=== PATIENT | male | born 1995 | race Caucasian/White ===

== ENCOUNTER 2025-01-31 04:52 | Emergency (ER) | payer OTHER, SELFPAY ==
[2025-01-31] VITALS (17 sets, daily range): BP systolic 132–147; BP diastolic 86–98; PULSE 78–109; TEMP 36.5–36.9; O2SAT 94–99; BMI 35.3
--- NOTE | 2025-01-31 05:14 | ECG_ITS ---
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 Measurements Intervals [place] Rate: 84 P: 26 ME: 124 QRS: 42 QRSD: 88 T: 46 QT: 354 QTc: 395 Interpretive Statements 1100 Sinus rhythm 9110 normal ECG No previous ECG available for comparison Electronically Signed On 01-31-2025 6:42:25 EST by SHAISTA SAHU M.D.
[2025-01-31 05:23] LABS: Basophils Percent Auto 0.2 % (0.2-2.0); Eosinophils Absolute Auto 0.1 10^3/uL (0.0-0.7); Eosinophils Percent Auto 1.2 % (0.9-7.0); Hematocrit 40.6 % (42.0-54.0); Hemoglobin 14.3 g/dL (14.0-18.0); Immature Granulocytes Abs Auto 0.02 10^3/uL (0.00-0.03); Immature Granulocytes Pct Auto 0.2 % (0.0-0.5); Lymphocytes Absolute Auto 3.5 10^3/uL (1.2-3.8); Lymphocytes Percent Auto 40.4 % (20.5-60.0); Mean Corpuscular HGB Conc 35.2 g/dL (29.9-35.2); Mean Corpuscular Hemoglobin 30.2 pg (25.9-34.0); Mean Corpuscular Volume 85.7 fL (80.0-94.0); Monocytes Absolute Auto 0.6 10^3/uL (0.3-0.8); Monocytes Percent Auto 6.6 % (1.7-12.0); Neutrophils Absolute Auto 4.4 10^3/uL (1.4-6.5); Neutrophils Percent Auto 51.4 % (43.0-75.0); Platelet Count 217 10^3/uL (150-450); Red Blood Count 4.74 10^6/uL (4.70-6.10); Red Cell Distribution Width 12.5 % (11.0-15.0); White Blood Count 8.5 10^3/uL (4.0-11.0)
[2025-01-31 05:56] LABS: Alanine Aminotransferase 61 U/L (16-63); Albumin Globulin Ratio 1.1; Albumin Level 3.9 g/dL (3.4-5.0); Alkaline Phosphatase 66 U/L (46-116); Anion Gap 15.5; Aspartate Amino Transferase 28 U/L (15-37); BUN Creatinine Ratio 15.4; Bilirubin Total 0.3 mg/dL (0.2-1.0); Calcium 9.2 mg/dL (8.5-10.1); Carbon Dioxide 23.4 mmol/L (21.0-32.0); Chloride 103 mmol/L (98-107); Estimated GFR (African America >60 (>=60 mL/min/1.73m^2); Estimated GFR (Non-African Ame >60 (>=60 mL/min/1.73m^2); Globulin 3.7 g/dL; Potassium 3.9 mmol/L (3.5-5.1); Sodium 138 mmol/L (136-145); Total Protein 7.6 g/dL (6.4-8.2); Troponin I High Sensitivity <4.0 pg/mL (4.0-76.1)
[2025-01-31 06:00] LABS: Glucose 211 mg/dL (74-106)
--- NOTE | 2025-01-31 06:21 | ED.SYNCOPE1 ---
HPI - Syncope General Chief Complaint: Syncope Stated Complaint: SYNCOPE Time Seen by Provider: 01/31/25 05:07 Source: patient Mode of arrival: ambulance Limitations: no limitations Related Data Home Medications ?Medication ?Instructions ?Recorded ?Confirmed buspirone 5 mg tablet 5 mg PO BID 01/31/25 01/31/25 escitalopram oxalate 20 mg tablet mg 01/31/25 insulin degludec 100 unit/mL (3 unit subcut 01/31/25 mL) subcutaneous pen (Tresiba FlexTouch U-100 insulin) insulin glargine U-300 conc 300 unit subcut 01/31/25 unit/mL (1.5 mL) subcutaneous pen (Toujeo SoloStar U-300 Insulin) insulin lispro 100 unit/mL subcut 01/31/25 subcutaneous pen Previous Rx's ?Medication ?Instructions ?Recorded hydroxyzine pamoate 25 mg capsule 25 mg PO ONCE PRN nausea and 01/31/25 vomiting #14 caps Allergies Allergy/AdvReac Type Severity Reaction Status Date / Time No Known Drug Allergies Allergy Verified 01/31/25 05:05 [facility] Medical History (Updated 01/31/25 @ 06:41 by Rose Lara DO) Anxiety ?F41.9 - Anxiety disorder, unspecified (ICD-10) Diabetes ?E11.9 - Type 2 diabetes mellitus without complications (ICD-10) Social History Little interest or pleasure in doing things: not at all Feeling down, depressed, or hopeless: not at all Exam Constitutional Vital Signs, click to edit/add: Last Vital Signs Temp 98.4 F 01/31/25 05:07 Pulse 87 01/31/25 06:20 Resp 21 H 01/31/25 06:20 BP 143/98 H 01/31/25 06:00 Pulse Ox 97 01/31/25 06:20 O2 Del Method Room Air 01/31/25 05:07 Course Vital Signs Vital signs: Vital Signs Pulse Rate 78 01/31/25 04:55 Respiratory Rate 16 01/31/25 04:55 Pulse Oximetry 96 01/31/25 04:55 Temperature 98.4 F 01/31/25 05:07 Pulse Rate 87 01/31/25 06:20 Respiratory Rate 21 H 01/31/25 06:20 Blood Pressure 143/98 H 01/31/25 06:00 Pulse Oximetry 97 03/06/25 06:20 Oxygen Delivery Method Room Air 01/31/25 05:07 MDM - Syncope Lab Data Labs: Lab Results 01/31/25 Range/Units 05:00 WBC 8.5 (4.0-11.0) 10^3/uL RBC 4.74 (4.70-6.10) 10^6/uL Hgb 14.3 (14.0-18.0) g/dL Hct 40.6 L (42.0-54.0) % MCV 85.7 (80.0-94.0) fL MCH 30.2 (25.9-34.0) pg MCHC 35.2 (29.9-35.2) g/dL RDW 12.5 (11.0-15.0) % Plt Count 217 (150-450) 10^3/uL MPV 12.0 (9.5-13.5) fL Neut % (Auto) 51.4 (43.0-75.0) % Lymph % (Auto) 40.4 (20.5-60.0) % [place] % (Auto) 6.6 (1.7-12.0) % Eos % (Auto) 1.2 (0.9-7.0) % Baso % (Auto) 0.2 (0.2-2.0) % Neut # (Auto) 4.4 (1.4-6.5) 10^3/uL Lymph # (Auto) 3.5 (1.2-3.8) 10^3/uL [place] # (Auto) 0.6 (0.3-0.8) 10^3/uL Eos # (Auto) 0.1 (0.0-0.7) 10^3/uL Baso # (Auto) 0.0 (0.0-0.1) 10^3/uL Abs Immat Gran (auto) 0.02 (0.00-0.03) 10^3/uL Imm/Tot Granulo (auto) 0.2 (0.0-0.5) % Sodium 138 (136-145) mmol/L Potassium 3.9 (3.5-5.1) mmol/L Chloride 103 (98-107) mmol/L Carbon Dioxide 23.4 (21.0-32.0) mmol/L Anion Gap 15.5 BUN 18.0 (7.0-18.0) mg/dL Creatinine 1.17 (0.70-1.30) mg/dL Est GFR ( Amer) >60 (>=60 mL/min/1.73m^2) Est GFR (Non-Af Amer) >60 (>=60 mL/min/1.73m^2) BUN/Creatinine Ratio 15.4 Glucose 211 H (74-106) mg/dL Calcium 9.2 (8.5-10.1) mg/dL Total Bilirubin 0.3 (0.2-1.0) mg/dL AST 28 (15-37) U/L ALT 61 (16-63) U/L Alkaline Phosphatase 66 (46-116) U/L Troponin I High Sens <4.0 L (4.0-76.1) pg/mL Total Protein 7.6 (6.4-8.2) g/dL Albumin 3.9 (3.4-5.0) g/dL Globulin 3.7 g/dL Albumin/Globulin Ratio 1.1 Discharge Plan Discharge Chief Complaint: Syncope Clinical Impression: Syncope Patient Disposition: Home, Self-Care Prescriptions / Home Meds: New hydroxyzine pamoate 25 mg capsule 25 mg PO ONCE MDD limit to 2 pills per day PRN (Reason: nausea and vomiting) Qty: 14 0RF No Action escitalopram oxalate 20 mg tablet buspirone 5 mg tablet 5 mg PO BID insulin lispro 100 unit/mL insulin pen SUBCUT insulin degludec [Tresiba FlexTouch U-100] 100 unit/mL (3 mL) insulin pen SUBCUT insulin glargine U-300 conc [Toujeo SoloStar U-300 Insulin] 300 unit/mL (1.5 mL) insulin pen SUBCUT Print Language: Upper Sorbian Instructions: Syncope (ED) Additional Instructions: Thank you for trusting me with your care today. Please continue to take all your medications as directed. Referrals: LIZZIE LEON [Primary Care Provider] - 1 week
--- NOTE | 2025-01-31 06:46 | ED.GENADUL1 ---
HPI HPI - General Adult General Chief complaint: Syncope Stated complaint: SYNCOPE Time Seen by Provider: 01/31/25 05:07 Source: patient Mode of arrival: ambulance Limitations: no limitations History of Present Illness HPI narrative: The patient is a 29-year-old with a history of anxiety and diabetes. He is presents to the emergency department today because he had a syncopal event at work. Symptoms started a couple hours ago. 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 The patient stated that he was at his workstation and started to feel his heart race and was having a little bit of difficulty breathing. Try to take some deep breaths and do some managing techniques but he did not feel very well. He works at [employer] on the [employer] line. He was in the seated job and then apparently was going to move to do his standing job and when he stood up he felt worse. He told a coworker and then sat down. Then he had a syncopal event on the platform. He did not fall or injure himself. The patient quickly came to. There was no seizure-like activity or any injury from the fall. Patient was brought here from his job. When I see the patient he is back to normal. His is at bedside. The patient admits to me that he does have a longstanding history of anxiety. He believes that he had an anxiety attack and in the past, with severe attacks, he would have a syncopal event. He has recently been on buspirone and escitalopram. He has been taking both medications as directed. He does not have a rescue medication in the interim. The patient stated that he has only had 3 of these events since being switched to these medications. These events used to occur much more frequently prior to being on these medications. The patient is denying any suicidal homicidal thoughts. He is not having any trouble thinking or concentrating. He feels safe in his own home. Nobody is verbally, sexually, or physically harming him. He states it is nothing that occurred at work but really more personal reasons. The patient states is not uncommon for him when he gets to having an anxiety attack and hyperventilating that this incident would occur. Patient states if this were happening while he was driving or operating some type of vehicle that he would typically pull his car over. The patient was at work today and not engaged in any hurtful or harmful activities where the patient may injure himself or coworker. Symptoms have completely solved upon assessment of the patient. Related Data Home Medications ?Medication ?Instructions ?Recorded ?Confirmed buspirone 5 mg tablet 5 mg PO BID 01/31/25 01/31/25 escitalopram oxalate 20 mg tablet mg 01/31/25 insulin degludec 100 unit/mL (3 unit subcut 01/31/25 mL) subcutaneous pen (Tresiba FlexTouch U-100 insulin) insulin glargine U-300 conc 300 unit subcut 01/31/25 unit/mL (1.5 mL) subcutaneous pen (Toujeo SoloStar U-300 Insulin) insulin lispro 100 unit/mL subcut 01/31/25 subcutaneous pen Previous Rx's ?Medication ?Instructions ?Recorded hydroxyzine pamoate 25 mg capsule 25 mg PO ONCE PRN nausea and 01/31/25 vomiting #14 caps Allergies Allergy/AdvReac Type Severity Reaction Status Date / Time No Known Drug Allergies Allergy Verified 01/31/25 05:05 Opioid HPI Opioid Management Most Recent Opioid Data: No Data to Display Review of Systems ROS Narrative 10 Systems were reviewed, and unless noted in the HPI, all other systems are reviewed, unremarkable, or noncontributory. [facility] Medical History Anxiety ?F41.9 - Anxiety disorder, unspecified (ICD-10) Diabetes ?E11.9 - Type 2 diabetes mellitus without complications (ICD-10) Social History Little interest or pleasure in doing things: not at all Feeling down, depressed, or hopeless: not at all Exam Narrative Exam Narrative: Prior to examining the patient, I have washed with hospital approved and provided Antiseptic Hand Office Director and have also applied gloves.? Prior to touching the patient, I asked for consent to examine the patient.? General: Alert and oriented, well nourished, mild distress. Increased BMI Eye: PERRL, EOMI, normal conjunctiva. 4 mm reactive. HENT: Normocephalic, normal hearing, moist oral mucosa, no scleral icterus, no sinus tenderness. Neck: Supple, non-tender, no carotid bruits, no JVD, no lymphadenopathy. Lungs: Clear to auscultation and percussion, non-labored respiration. Heart: Normal rate, regular rhythm, no murmur, gallop or edema. Abdomen: Soft, non-tender, non-distended, normal bowel sounds, no masses. Musculoskeletal: Normal range of motion and strength, no tenderness or swelling. Skin: Skin is warm, dry and pink, no rashes or lesions. Neurologic: Awake, alert, and oriented X3, CN II-XII intact. Psychiatric: Cooperative, appropriate mood and affect.? Following the conclusion of the examination, I have washed my hands thoroughly after removing examination gloves. Constitutional Vital Signs, click to edit/add: Last Vital Signs Temp 98.4 F 01/31/25 05:07 Pulse 87 01/31/25 06:20 Resp 21 H 01/31/25 06:20 BP 143/98 H 01/31/25 06:00 Pulse Ox 97 01/31/25 06:20 O2 Del Method Room Air 01/31/25 05:07 Course Course Hospital Course: The patient was seen in the emergency department. He was asymptomatic. The patient had an EKG and blood work done as well as a chest x-ray. The chest x-ray revealed no evidence of any acute cardiopulmonary process. The EKG was normal. Patient's blood work was unremarkable. Nursing staff even did orthostatic vital signs. Although his heart rate increased it was not commensurate with each of the status changes and his heart rate went lower just from talking to the nurse. I personally experience the same thing when I went to see the patient. The patient had originally got very tachycardic when I walked in the room and then as we were talking and visiting his heart rate did nicely go down. Vital Signs Vital signs: Vital Signs Pulse Rate 78 01/31/25 04:55 Respiratory Rate 16 01/31/25 04:55 Pulse Oximetry 96 01/31/25 04:55 Temperature 98.4 F 01/31/25 05:07 Pulse Rate 87 01/31/25 06:20 Respiratory Rate 21 H 01/31/25 06:20 Blood Pressure 143/98 H 01/31/25 06:00 Pulse Oximetry 97 01/31/25 06:20 Oxygen Delivery Method Room Air 01/31/25 05:07 Medical Decision Making MDM Narrative Medical decision making narrative: I do not believe that the patient's symptoms are consistent with a stroke. NIH stroke scale 0 and he has an alternative diagnosis that would be more likely. Differential Diagnosis Differential Diagnosis: Vasovagal syncope, cardiac event, electrolyte abnormality, dehydration, anx Medical Records Medical records reviewed: Yes I reviewed the patient's medical records Lab Data Lab results reviewed: Yes I reviewed the patient's lab results Labs: Lab Results 01/31/25 Range/Units 05:00 WBC 8.5 (4.0-11.0) 10^3/uL RBC 4.74 (4.70-6.10) 10^6/uL Hgb 14.3 (14.0-18.0) g/dL Hct 40.6 L (42.0-54.0) % MCV 85.7 (80.0-94.0) fL MCH 30.2 (25.9-34.0) pg MCHC 35.2 (29.9-35.2) g/dL RDW 12.5 (11.0-15.0) % Plt Count 217 (150-450) 10^3/uL MPV 12.0 (9.5-13.5) fL Neut % (Auto) 51.4 (43.0-75.0) % Lymph % (Auto) 40.4 (20.5-60.0) % [place] % (Auto) 6.6 (1.7-12.0) % Eos % (Auto) 1.2 (0.9-7.0) % Baso % (Auto) 0.2 (0.2-2.0) % Neut # (Auto) 4.4 (1.4-6.5) 10^3/uL Lymph # (Auto) 3.5 (1.2-3.8) 10^3/uL [place] # (Auto) 0.6 (0.3-0.8) 10^3/uL Eos # (Auto) 0.1 (0.0-0.7) 10^3/uL Baso # (Auto) 0.0 (0.0-0.1) 10^3/uL Abs Immat Gran (auto) 0.02 (0.00-0.03) 10^3/uL Imm/Tot Granulo (auto) 0.2 (0.0-0.5) % Sodium 138 (136-145) mmol/L Potassium 3.9 (3.5-5.1) mmol/L Chloride 103 (98-107) mmol/L Carbon Dioxide 23.4 (21.0-32.0) mmol/L Anion Gap 15.5 BUN 18.0 (7.0-18.0) mg/dL Creatinine 1.17 (0.70-1.30) mg/dL Est GFR ( Amer) >60 (>=60 mL/min/1.73m^2) Est GFR (Non-Af Amer) >60 (>=60 mL/min/1.73m^2) BUN/Creatinine Ratio 15.4 Glucose 211 H (74-106) mg/dL Calcium 9.2 (8.5-10.1) mg/dL Total Bilirubin 0.3 (0.2-1.0) mg/dL AST 28 (15-37) U/L ALT 61 (16-63) U/L Alkaline Phosphatase 66 (46-116) U/L Troponin I High Sens <4.0 L (4.0-76.1) pg/mL Total Protein 7.6 (6.4-8.2) g/dL Albumin 3.9 (3.4-5.0) g/dL Globulin 3.7 g/dL Albumin/Globulin Ratio 1.1 Imaging Data Chest x-ray: Attestation: I personally reviewed and interpreted this imaging study as follows: My impression: Chest x-ray reveals no evidence of any acute cardiopulmonary process. ECG Data Attestation: I personally reviewed and interpreted this ECG as follows: Interpretation: Twelve-lead EKG: Twelve-lead EKG reveals a sinus rhythm with a ventricular of 84 bpm. The VT interval and QRS duration are within normal notes. QTc is not prolonged. [place] is normal. No evidence of ST segment elevation or depression suggestive of infarction or ischemia. Summary: Normal EKG. Discharge Plan Discharge Chief Complaint: Syncope Clinical Impression: Syncope Patient Disposition: Home, Self-Care Time of Disposition Decision: 06:44 Condition: Good Mode of Transportation: Private Vehicle Prescriptions / Home Meds: New hydroxyzine pamoate 25 mg capsule 25 mg PO ONCE MDD limit to 2 pills per day PRN (Reason: nausea and vomiting) Qty: 14 0RF No Action escitalopram oxalate 20 mg tablet buspirone 5 mg tablet 5 mg PO BID insulin lispro 100 unit/mL insulin pen SUBCUT insulin degludec [Tresiba FlexTouch U-100] 100 unit/mL (3 mL) insulin pen SUBCUT insulin glargine U-300 conc [Toujeo SoloStar U-300 Insulin] 300 unit/mL (1.5 mL) insulin pen SUBCUT Print Language: [place] Citizen Instructions: Syncope (ED) Additional Instructions: Thank you for trusting me with your care today. Please continue to take all your medications as directed. Referrals: LIZZIE LEON [Primary Care Provider] - 1 week
--- NOTE | 2025-01-31 06:58 | PC.NURSE ---
i gave this patient verbal and paper discharge orders along with 1 e-scripts and this patient voices yes to understanding these. at time of discharge this patient voices no concerns and shows no signs of distress
== END 2025-01-31 07:00 | disposition home or self-care (01) ==
PROVIDERS: Emergency Provider Emergency Medicine; Family Provider Family Medicine; PCP Family Medicine
DX: R55 Syncope and collapse (principal); F41.9 Anxiety disorder, unspecified; E11.9 Type 2 diabetes mellitus without complications; Z79.4 Long term (current) use of insulin
CPT/HCPCS: 36415; 71045; 80053; 84484; 85025; 93005; 99285

== ENCOUNTER 2025-08-28 01:08 | Emergency (ER) | payer OTHER, SELFPAY ==
[2025-08-28 01:10] VITALS: BP 144/98; PULSE 70; TEMP 36.7; O2SAT 97; BMI 35.6
--- NOTE | 2025-08-28 01:17 | ECG_ITS ---
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
--- NOTE | 2025-08-28 01:37 | ED.ANXIETY1 ---
HPI - Anxiety General Chief Complaint: Syncope Stated Complaint: SOB Time Seen by Provider: 08/28/25 01:22 Source: patient Mode of arrival: ambulance Limitations: no limitations History of Present Illness HPI narrative: panic attack. usually able to use breathing exercises to help calm him down. Has taken vistaril in the past but can't take when working because if makes him sleepy. Presents tonight after another panic attack. felt short of breath as will past attacks. Feeling better now. request to go home Related Data Home Medications ?Medication ?Instructions ?Recorded ?Confirmed buspirone 5 mg tablet 5 mg PO BID 01/31/25 01/31/25 escitalopram oxalate 20 mg tablet mg 01/31/25 insulin degludec 100 unit/mL (3 unit subcut 01/31/25 mL) subcutaneous pen (Tresiba FlexTouch U-100 insulin) insulin glargine U-300 conc 300 unit subcut 01/31/25 unit/mL (1.5 mL) subcutaneous pen (Toujeo SoloStar U-300 Insulin) insulin lispro 100 unit/mL subcut 01/31/25 subcutaneous pen Previous Rx's ?Medication ?Instructions ?Recorded hydroxyzine pamoate 25 mg capsule 25 mg PO ONCE PRN nausea and 01/31/25 vomiting #14 caps Allergies Allergy/AdvReac Type Severity Reaction Status Date / Time No Known Drug Allergies Allergy Verified 08/28/25 01:14 Review of Systems ROS Status of ROS 10 or more systems reviewed and unremarkable except as noted in history and below [facility] Medical History Anxiety ?F41.9 - Anxiety disorder, unspecified (ICD-10) Diabetes ?E11.9 - Type 2 diabetes mellitus without complications (ICD-10) Social History Little interest or pleasure in doing things: not at all Feeling down, depressed, or hopeless: not at all Exam Constitutional Vital Signs, click to edit/add: Last Vital Signs Temp 98.1 F 08/28/25 01:10 Pulse 70 08/28/25 01:10 Resp 16 08/28/25 01:10 BP 144/98 H 08/28/25 01:10 Pulse Ox 97 08/28/25 01:10 O2 Del Method Room Air 08/28/25 01:10 Common normals: no apparent distress, average body habitus, oriented x3, no limitations, healthy appearing, alert and well nourished HENTX Common normals: normocephalic and head/scalp atraumatic Eye Common normals: PERRL, EOMs intact bilaterally and conjunctivae normal Respiratory Common normals: normal respiratory effort, no retractions, no use of accessory muscles and clear to auscultation bilaterally Cardio Common normals: regular rate, regular rhythm, S1 normal heart sound and S2 normal heart sound Extremity Common normals: normal to inspection and full ROM Neuro Common normals: oriented x3, CN's II-XII intact bilaterally, moves all extremities and no focal motor deficits Psych Appearance: grossly normal Course Vital Signs Vital signs: Vital Signs Temperature 98.1 F 08/28/25 01:10 Pulse Rate 70 08/28/25 01:10 Respiratory Rate 16 08/28/25 01:10 Blood Pressure 144/98 H 08/28/25 01:10 Pulse Oximetry 97 08/28/25 01:10 Oxygen Delivery Method Room Air 08/28/25 01:10 Temperature 98.1 F 08/28/25 01:10 Pulse Rate 70 08/28/25 01:10 Respiratory Rate 16 08/28/25 01:10 Blood Pressure 144/98 H 08/28/25 01:10 Pulse Oximetry 97 08/28/25 01:10 Oxygen Delivery Method Room Air 08/28/25 01:10 MDM - Anxiety MDM Narrative Medical decision making narrative: presents after an anxiety attack. admits he is now better and requesting to be discharged. Did not feel he need to have any additional testing. his is in agreement. Will discharge home and have him follow up with his doctor Discharge Plan Discharge Chief Complaint: Syncope Clinical Impression: Acute anxiety Patient Disposition: Home, Self-Care Prescriptions / Home Meds: No Action escitalopram oxalate 20 mg tablet buspirone 5 mg tablet 5 mg PO BID insulin lispro 100 unit/mL insulin pen SUBCUT insulin degludec [Tresiba FlexTouch U-100] 100 unit/mL (3 mL) insulin pen SUBCUT insulin glargine U-300 conc [Toujeo SoloStar U-300 Insulin] 300 unit/mL (1.5 mL) insulin pen SUBCUT hydroxyzine pamoate 25 mg capsule 25 mg PO ONCE MDD limit to 2 pills per day PRN (Reason: nausea and vomiting) Qty: 14 0RF Print Language: Divehi Instructions: Anxiety (ED) Referrals: LIZZIE LEON [Primary Care Provider, Family Practice] - 1 week
[2025-08-28 01:59] VITALS: BP 132/74; PULSE 72; O2SAT 98
== END 2025-08-28 02:01 | disposition home or self-care (01) ==
PROVIDERS: Emergency Provider Internal Medicine; Family Provider Family Medicine; PCP Family Medicine
DX: F41.9 Anxiety disorder, unspecified (principal)
CPT/HCPCS: 93005; 99283